=== PATIENT | male | born 1985 | race Asian ===

== ENCOUNTER 2018-12-30 01:47 | Emergency (ER) | payer OTHER ==
[~2018-12-30] VITALS: Ht 170.2 cm; Wt 102.1 kg
[2018-12-30] MEDS ORDERED: NKM (01:58)
--- NOTE | 2018-12-30 02:04 | NUR ---
ED Nurse Note: Pt ambulated to ED from work. Pt was working, tripped and hit his back on the stove, red han noted. Pt reports pain 3. A&Ox4. VSS
[2018-12-30 02:06] VITALS: BP 145/90
[2018-12-30] MEDS ORDERED: IBUPROFEN600 MG ORAL (02:11)
--- NOTE | 2018-12-30 02:11 | Emergency Room Report ---
History of Present Illness General Chief Complaint: Back Injury Source: Patient Present Illness HPI This is a 33-year-old male with no past medical history. He presents with chief complaint of back injury. He works as a nearby hotel. He was taking out the trash in the bag broke and he slipped and fell. In the process of falling he hit the edge of the stove with his back. He has some mild pain to that area. There is an abrasion to that area. Was sent in by his concreting supervisor to be checked out. Patient has minimal pain. No loss of consciousness. No other injury. Allergies: Coded Allergies: No Known Allergies (Unverified , 12/30/18) Patient History Past Medical History: none, see triage record, old chart reviewed Past Surgical History: none Pertinent Family History: none Social History: Denies: smoking Immunizations: other Reviewed Nursing Documentation: PMH: Agreed; PSxH: Agreed Nursing Documentation-PMH Past Medical History: No Stated History Review of Systems Eye: Denies: eye pain, blurred vision ENT: Denies: ear pain, nose congestion, throat swelling Respiratory: Denies: cough, shortness of breath Cardiovascular: Denies: chest pain, palpitations Gastrointestinal: Denies: abdominal pain, diarrhea, nausea, vomiting Musculoskeletal: Reports: back pain; Denies: joint pain Skin: Denies: rash Neurological: Denies: headache, numbness Endocrine: Denies: increased thirst, increased urine Hematologic/Lymphatic: Denies: easy bruising All Other Systems: negative except mentioned in HPI Physical Exam Vital Signs Date Time Temp Pulse Resp B/P (MAP) Pulse Ox O2 Delivery O2 Flow Rate FiO2 12/30/18 01:53 98.4 81 16 145/90 (108) 97 Room Air Vitals unremarkable Sp02 EP Interpretation: reviewed, normal General Appearance: well appearing, no apparent distress, alert Head: normocephalic, atraumatic Eyes: bilateral eye PERRL, bilateral eye EOMI ENT: hearing grossly normal, normal pharynx Neck: full range of motion, supple, no meningismus Respiratory: chest non-tender, lungs clear, normal breath sounds Cardiovascular #1: regular rate, rhythm, no murmur Gastrointestinal: normal bowel sounds, non tender, no mass, no organomegaly, no bruit, non-distended Musculoskeletal: back normal, gait/station normal, normal range of motion, other - Patient has an oblique abrasion pattern to his upper lumbar area on his back. No step-off. No bleeding. Neurologic: alert, oriented x3 Psychiatric: mood/affect normal Medical Decision Making Diagnostic Impression: Primary Impression: Abrasion of back Qualified Codes: S20.419A - Abrasion of unspecified back wall of thorax, initial encounter ER Course Presents with a superficial abrasion to his back from injury. No need for x- ray. No evidence of any fracture or internal injury. Will discharge home. Last Vital Signs Date Time Temp Pulse Resp B/P (MAP) Pulse Ox O2 Delivery O2 Flow Rate FiO2 12/30/18 01:53 98.4 81 16 145/90 (108) 97 Room Air Status: unchanged Disposition: HOME, SELF-CARE Condition: Stable Scripts Ibuprofen* (MOTRIN*) 600 Mg Tablet 600 MG ORAL THREE TIMES A DAY, #30 TAB 0 Refills Prov: Isaiah Hastings MD 12/30/18 Additional Instructions: Follow-up with your concreting supervisor for referral to Workmen's Comp. in a week. Return if worse. Isaiah Hastings MD Dec 30, 2018 02:11
[2018-12-30 02:15] VITALS: BP 145/90
--- NOTE | 2018-12-30 02:15 | NUR ---
ER DISCHARGE NOTE: Patient is cleared to be discharged per ERMD, pt is aox4, on room air, with stable vital signs. pt was given dc and prescription instructions, pt was able to verbalize understanding, pt id band removed. pt is able to ambulate with steady gait. pt took all belongings.
== END 2018-12-30 02:15 | disposition home or self-care (01) ==
LOC: EMR 02:15
DX: S20.419A Abrasion of unspecified back wall of thorax, initial encounter (principal); W01.0XXA Fall on same level from slipping, tripping and stumbling without subsequent striking against object, initial encounter; Y92.9 Unspecified place or not applicable; Y99.0 Civilian activity done for income or pay
CPT/HCPCS: 99282